=== PATIENT | male | born 1995 | race Caucasian/White ===

== ENCOUNTER 2020-11-23 21:16 | Emergency (ER) | payer OTHER ==
[~2020-11-23] VITALS: Ht 162.6 cm; Wt 65.8 kg
[2020-11-23 21:25] VITALS: BP 125/62
--- NOTE | 2020-11-23 21:28 | NUR ---
TO LOBBY A/W BED VIA WHEELCHAIR
--- NOTE | 2020-11-23 23:23 | NUR ---
SEE PATIENT ASSESSMENT FOR MORE INFORMATION.
--- NOTE | 2020-11-23 23:23 | NUR ---
ERMD AT BEDSIDE ASSESSING PATIENT.
[2020-11-23] MEDS ORDERED: IBUP-2218 PO (23:59)
[2020-11-24] MEDS: KETOROLAC 30 MG/ML VIAL IM ONE (00:16)
--- NOTE | 2020-11-24 00:16 | NUR ---
KNEE IMMOBILIZER PLACED ON PT L KNEE AND FASTENED. +CSM
--- NOTE | 2020-11-24 00:17 | NUR ---
PT GIVEN INSTRUCTION ON PROPER USE OF CRUTCHES. CRUTCHES FITTED TO PT HEIGHT AND ARM LENGTH. PT DEMONSTRATED SAFE USE FOR APPROXIMATELY 40 FEET, PT STATED HE FELT COMFORTABLE WITH USE.
--- NOTE | 2020-11-24 01:15 | NUR ---
Patient discharged with v/s stable. Written and verbal after care instructions given and explained. Patient alert, oriented and verbalized understanding of instructions. Ambulatory with steady gait, USING CRUTCHES. All questions addressed prior to discharge. ID band removed. Patient advised to follow up with PMD. Rx of IBUPROFEN given. Patient educated on indication of medication including possible reaction and side effects. Opportunity to ask questions provided and answered.
[2020-11-24 01:28] VITALS: BP 134/78
== END 2020-11-24 01:15 | disposition home or self-care (01) ==
LOC: MED 21:16
DX: M25.562 Pain in left knee (principal); V00.131A Fall from skateboard, initial encounter; Y93.89 Activity, other specified; Y92.89 Other specified places as the place of occurrence of the external cause; Y99.8 Other external cause status
CPT/HCPCS: 29505; 73562; 96372; 99283; J1885